=== PATIENT | female | born 1985 | race Caucasian/White ===

== ENCOUNTER 2023-12-11 19:55 | Emergency (ER) | payer OTHER ==
[~2023-12-11] VITALS: Ht 157.5 cm; Wt 65.0 kg
[2023-12-11] MEDS ORDERED: LIAL1.2T PO (20:05)
[2023-12-11 21:18] VITALS: BP 130/73; TEMP 97.8; O2SAT 100
== END 2023-12-11 21:54 | disposition home or self-care (01) ==
LOC: M ED 19:55
DX: S93.402A Sprain of unspecified ligament of left ankle, initial encounter (principal); X50.0XXA Overexertion from strenuous movement or load, initial encounter; Y92.009 Unspecified place in unspecified non-institutional (private) residence as the place of occurrence of the external cause; Y93.89 Activity, other specified; Y99.9 Unspecified external cause status; Z79.899 Other long term (current) drug therapy

== ENCOUNTER 2025-01-29 21:32 | Emergency (ER) | payer OTHER ==
[~2025-01-29] VITALS: Ht 157.5 cm; Wt 63.6 kg
[~2025-01-29 21:32] MED LIST: LIAL1.2T PO
[2025-01-30 00:21] VITALS: BP 128/87; TEMP 97; O2SAT 99
== END 2025-01-30 00:24 | disposition home or self-care (01) ==
LOC: M ED 21:32
DX: S92.514A Nondisplaced fracture of proximal phalanx of right lesser toe(s), initial encounter for closed fracture (principal); W22.03XA Walked into furniture, initial encounter; K51.90 Ulcerative colitis, unspecified, without complications; Y92.009 Unspecified place in unspecified non-institutional (private) residence as the place of occurrence of the external cause; Y93.89 Activity, other specified; Y99.9 Unspecified external cause status; Z79.899 Other long term (current) drug therapy